=== PATIENT | male | born 1965 | race American Indian/Alaskan Native ===

== ENCOUNTER 2018-06-04 23:09 | Emergency (ER) | payer SELFPAY ==
[2018-06-05 00:12] VITALS: BP 96/67
--- NOTE | 2018-06-05 02:25 | XRay Report ---
FINAL REPORT EXAM: XR HAND 3+V LT HISTORY: pain and injury to L middle finger TECHNIQUE: AP view of the left hand and a lateral view of the left middle finger PRIORS: None. FINDINGS: There is a 3 mm density located on the radial side of the 3rd distal interphalangeal joint that appears to represent a foreign body. It is seen only on the AP view. There is an old, healed fifth metacarpal fracture. The bones are normally aligned and mineralized. The joint spaces are well-preserved. There is no evidence of acute fracture. IMPRESSION: 3 mm density on the radial side of the 3rd distal interphalangeal joint suspicious for a foreign body. No evidence of acute fracture.
[2018-06-05] MEDS ORDERED: NORCO 5/325 PO ONE (02:45)
--- NOTE | 2018-06-05 02:50 | Emergency Department Report ---
HPI - General Chief Complaint: Extremity Injury, Upper Time Seen by Provider: 06/05/18 02:24 - HPI HPI: Room 23 The patient is a 53-year-old male presenting with a chief complaint left middle finger pain. The patient states yesterday morning he accidentally slammed his left middle finger in a car door. Patient complains of pain DIP. Patient gives his pain score 9-10/10. Patient denies any other complaints. Location: Left middle finger Duration: Constant since yesterday Quality: Pain Severity: 9-10/10 Modifying factors: [see above] Context: [see above] Mode of transportation: [not driving] ED Past Medical Hx - Past Medical History Previous Medical History?: Yes Hx Asthma: (BRONCHITIS) Additional medical history: "I have a hernia that I've never seen the doctor about" - Surgical History Past Surgical History?: No - Family History Family history: no significant - Social History Smoking Status: Current Every Day Smoker (1/3 pack per day) Substance Use Type: None - Medications Home Medications: Home Medications Medication Instructions Recorded Confirmed Last Taken Type Albuterol Sulfate [Ventolin HFA] 2 puff IH Q4H PRN #1 hfa.aer.ad 03/02/14 Unknown Rx Prednisone [Prednisone 10 mg 10 mg PO .TAPER #1 tab.ds.pk 03/02/14 Unknown Rx (6-Day Pack, 21 Tabs)] Acetaminophen/Codeine [Tylenol #3] 1 tab PO Q6H PRN #15 tab 06/24/15 Unknown Rx HYDROcodone/APAP 5-325 [[place] 1 - 2 each PO Q6HR PRN #14 tablet 06/05/18 Unknown Rx 5/325] Ibuprofen [Motrin 800 MG tab] 800 mg PO Q8HR PRN #20 tablet 06/05/18 Unknown Rx ED Review of Systems ROS: Stated complaint: LT MIDDLE FINGER,POSS BROKEN Other details as noted in HPI Constitutional: no symptoms reported Eyes: denies: eye pain ENT: denies: throat pain Respiratory: no symptoms reported Cardiovascular: denies: chest pain Endocrine: no symptoms reported Gastrointestinal: denies: abdominal pain Genitourinary: denies: dysuria Musculoskeletal: arthralgia Neurological: denies: headache Physical Exam - Physical Exam Vital Signs: Vital Signs 06/05/18 06/05/18 00:00 00:40 Temperature 98.8 F 98.8 F Pulse Rate 71 71 Respiratory 16 16 Rate Blood Pressure 96/67 96/67 O2 Sat by Pulse 95 95 Oximetry Physical Exam: GENERAL: The patient is well-developed well-nourished male sitting on stretcher not appearing to be in acute distress. [] HEENT: Normocephalic. Atraumatic. Extraocular motions are intact. Patient has moist mucous membranes. NECK: Supple. Trachea midline CHEST/LUNGS: There is no respiratory distress noted. HEART/CARDIOVASCULAR: Regular. There is no tachycardia. Normal capillary refill left middle finger. 2+ left radial pulse SKIN: There is no rash. There is no laceration or abrasion of the left middle finger NEURO: The patient is awake, alert, and oriented. The patient is cooperative. The patient has normal speech MUSCULOSKELETAL: There is no limitation range of motion. ED Course Vital Signs 06/05/18 06/05/18 00:00 00:40 Temperature 98.8 F 98.8 F Pulse Rate 71 71 Respiratory 16 16 Rate Blood Pressure 96/67 96/67 O2 Sat by Pulse 95 95 Oximetry ED Medical Decision Making - Radiology Data Radiology results: report reviewed (left hand x-ray), image reviewed (left hand x-ray) interpreted by me: Left hand [id number] to the ulnar side of the middle finger DIP possible bony avulsion [facility] [address] [place] [address] XRay Report Signed Patient: DEBORAH CATHERINE JR MR#: [id number] : 1965 Acct:[id number] Age/Sex: 53 / M ADM Date: 06/04/18 Loc: ED Attending Dr: Ordering Physician: MARY LOU NARAYAN MD Date of Service: 06/05/18 Procedure(s): XR hand 3+V LT Accession Number(s): [id number] cc: MARY LOU NARAYAN MD Fluoro Time In Minutes: FINAL REPORT EXAM: XR HAND 3+V LT HISTORY: pain and injury to L middle finger TECHNIQUE: AP view of the left hand and a lateral view of the left middle finger PRIORS: None. FINDINGS: There is a 3 mm density located on the radial side of the 3rd distal interphalangeal joint that appears to represent a foreign body. It is seen only on the AP view. There is an old, healed fifth metacarpal fracture. The bones are normally aligned and mineralized. The joint spaces are well-preserved. There is no evidence of acute fracture. IMPRESSION: 3 mm density on the radial side of the 3rd distal interphalangeal joint suspicious for a foreign body. No evidence of acute fracture. Transcribed By: DANGELO Dictated By: PATTI AVENDAÑO MD Electronically Authenticated By: PATTI AVENDAÑO MD Signed Date/Time: 06/05/18223 DD/ 3 TD/TT: 06/05/18223 - Differential Diagnosis finger fracture Critical care attestation.: If time is entered above; I have spent that time in minutes in the direct care of this critically ill patient, excluding procedure time. ED Disposition Clinical Impression: Finger fracture, left Disposition: - TO HOME OR SELFCARE Is pt being admited?: No Does the pt Need Aspirin: No Condition: Stable Instructions: Finger Fracture (ED) Additional Instructions: Return to the emergency department immediately should you develop worsening symptoms, fever, inability to tolerate food or liquid or any other concerns. Prescriptions: HYDROcodone/APAP 5-325 [[place] 5/325] 1 - 2 each PO Q6HR PRN #14 tablet PRN Reason: Pain Ibuprofen [Motrin 800 MG tab] 800 mg PO Q8HR PRN #20 tablet PRN Reason: Pain, Moderate (4-6) Referrals: PRIMARY CARE, [Primary Care Provider] - 3-5 Days DEBORAH AUSTIN MD [Staff Physician] - 3-5 Days (Dr. Austin is an orthopedic surgeon. Please follow up with him for further evaluation) Time of Disposition: 02:51
== END 2018-06-05 03:20 | disposition home or self-care (01) ==
LOC: ED 23:09
DX: S62.633A Displaced fracture of distal phalanx of left middle finger, initial encounter for closed fracture (principal); F17.200 Nicotine dependence, unspecified, uncomplicated; W22.8XXA Striking against or struck by other objects, initial encounter; Y93.89 Activity, other specified; Y92.89 Other specified places as the place of occurrence of the external cause; Y99.8 Other external cause status

== ENCOUNTER 2018-08-31 15:56 | Emergency (ER) | payer SELFPAY ==
[2018-08-31] MEDS ORDERED: ASPIRIN PO ONE (16:11)
[2018-08-31 16:34] LABS: Basophils % (Auto) 0.8 % (0.0-1.8); Eosinophils # (Auto) 0.2 K/mm3 (0.0-0.4); Eosinophils % (Auto) 3.4 % (0.0-4.3); Hematocrit 40.3 % (35.5-45.6); Hemoglobin 13.3 gm/dl (11.8-15.2); Lymphocytes # (Auto) 1.6 K/mm3 (1.2-5.4); Lymphocytes % (Auto) 28.9 % (13.4-35.0); Mean Corpuscular HGB Conc 33 % (32-34); Mean Corpuscular Volume 93 fl (84-94); Monocytes # (Auto) 0.5 K/mm3 (0.0-0.8); Monocytes % (Auto) 9.5 % (0.0-7.3); Platelet Count 279 K/mm3 (140-440); Red Blood Count 4.33 M/mm3 (3.65-5.03); Red Cell Distribution Width 13.7 % (13.2-15.2)
[2018-08-31 16:58] LABS: BUN/Creatinine Ratio 9; Blood Urea Nitrogen 9 mg/dL (9-20); Calcium 8.5 mg/dL (8.4-10.2); Hemolysis Index 3
--- NOTE | 2018-08-31 19:38 | XRay Report ---
FINAL REPORT PROCEDURE: Chest. TECHNIQUE: PA and lateral views. HISTORY: Chest pain. COMPARISON: No prior studies are available for comparison. FINDINGS: The heart size is normal. There is moderate tortuosity of the thoracic aorta. The lungs are clear and well expanded. There are no pleural effusions. The soft tissues and regional skeleton are unremarkab le. IMPRESSION: No evidence of acute cardiopulmonary disease.
[2018-08-31] MEDS ORDERED: TORADOL IM ONE (20:29)
[2018-08-31] MEDS ORDERED: TORADOL ONE (20:33)
--- NOTE | 2018-08-31 21:50 | Emergency Department Report ---
ED General Adult HPI - General Chief complaint: Chest Pain Stated complaint: CHEST PAIN Time Seen by Provider: 08/31/18 20:23 Source: patient Mode of arrival: Ambulatory Limitations: No Limitations - History of Present Illness Severity scale (0 -10): 8 - Related Data Previous Rx's Medication Instructions Recorded Last Taken Type Albuterol Sulfate [Ventolin HFA] 2 puff IH Q4H PRN #1 hfa.aer.ad 03/02/14 Un known Rx Prednisone [Prednisone 10 mg 10 mg PO .TAPER #1 tab.ds.pk 03/02/14 Unknown Rx (6-Day Pack, 21 Tabs)] Acetaminophen/Codeine [Tylenol #3] 1 tab PO Q6H PRN #15 tab 06/24/15 Unknown Rx HYDROcodone/APAP 5-325 [[place] 1 - 2 each PO Q6HR PRN #14 tablet 06/05/18 Unknown Rx 5/325] Ibuprofen [Motrin 800 MG tab] 800 mg PO Q8HR PRN #20 tablet 06/05/18 Unknown Rx ALBUTEROL Inhaler (OR & NICU) 1 puff IH Q4-6H PRN #1 inha 08/31/18 Unknown Rx [ProAir HFA Inhaler] guaiFENesin/CODEINE [Robitussin AC] 5 ml PO Q6H PRN #120 ml 08/31/18 Unknown Rx predniSONE [Deltasone] 20 mg PO QDAY #5 tab 08/31/18 Unknown Rx Allergies Allergy/AdvReac Type Severity Reaction Status Date / Time No Known Allergies Allergy Verified 01/29/14 06:41 ED Review of Systems ROS: Stated complaint: CHEST PAIN Other details as noted in HPI Constitutional: denies: chills, fever Eyes: denies: eye pain, eye discharge, vision change ENT: denies: ear pain, throat pain Respiratory: denies: cough, shortness of breath, wheezing Cardiovascular: denies: chest pain, palpitations Endocrine: no symptoms reported Gastrointestinal: denies: abdominal pain, nausea, diarrhea Genitourinary: denies: urgency, dysuria Musculoskeletal: denies: back pain, joint swelling, arthralgia Skin: denies: rash, lesions Neurological: denies: headache, weakness, paresthesias Psychiatric: denies: anxiety, depression Hematological/Lymphatic: denies: easy bleeding, easy bruising ED Past Medical Hx - Past Medical History Previous Medical History?: Yes Hx Asthma: (BRONCHITIS) Additional medical history: "I have a hernia that I've never seen the doctor about" - Surgical History Past Surgical History?: No - Social History Smoking Status: Current Every Day Smoker Substance Use Type: Marijuana - Medications Home Medications: Home Medications Medication Instructions Recorded Confirmed Last Taken Type Albuterol Sulfate [Ventolin HFA] 2 puff IH Q4H PRN #1 hfa.aer.ad 03/02/14 Unknown Rx Prednisone [Prednisone 10 mg 10 mg PO .TAPER #1 tab.ds.pk 03/02/14 Unknown Rx (6-Day Pack, 21 Tabs)] Acetaminophen/Codeine [Tylenol #3] 1 tab PO Q6H PRN #15 tab 06/24/15 Unknown Rx HYDROcodone/APAP 5-325 [[place] 1 - 2 each PO Q6HR PRN #14 tablet 06/05/18 Unknown Rx 5/325] Ibuprofen [Motrin 800 MG tab] 800 mg PO Q8HR PRN #20 tablet 06/05/18 Unknown Rx ALBUTEROL Inhaler (OR & NICU) 1 puff IH Q4-6H PRN #1 inha 08/31/18 Unknown Rx [ProAir HFA Inhaler] guaiFENesin/CODEINE [Robitussin AC] 5 ml PO Q6H PRN #120 ml 08/31/18 Unknown Rx predniSONE [Deltasone] 20 mg PO QDAY #5 tab 08/31/18 Unknown Rx ED Physical Exam - General Limitations: No Limitations General appearance: alert, in no apparent distress - Head Head exam: Present: atraumatic, normocephalic - Eye Eye exam: Present: normal appearance - ENT ENT exam: Present: mucous membranes moist - Neck Neck exam: Present: normal inspection, full ROM - Respiratory Respiratory exam: Present: normal lung sounds bilaterally. Absent: respiratory distress - Cardiovascular Cardiovascular Exam: Present: regular rate, normal rhythm. Absent: systolic m urmur, diastolic murmur, rubs, gallop - GI/Abdominal GI/Abdominal exam: Present: soft, normal bowel sounds - Rectal Rectal exam: Present: deferred - Extremities Exam Extremities exam: Present: normal inspection - Back Exam Back exam: Present: normal inspection - Neurological Exam Neurological exam: Present: alert, oriented X3 - Psychiatric Psychiatric exam: Present: normal affect, normal mood - Skin Skin exam: Present: warm, dry, intact, normal color. Absent: rash ED Course Vital Signs 08/31/18 08/31/18 16:08 20:38 Temperature 97.7 F Pulse Rate 66 Respiratory 20 20 Rate Blood Pressure 140/86 O2 Sat by Pulse 98 Oximetry ED Medical Decision Making - Lab Data Result diagrams: 08/31/18 16:12 08/31/18 16:12 Critical care attestation.: If time is entered above; I have spent that time in minutes in the direct care of this critically ill patient, excluding procedure time. ED Disposition Clinical Impression: Cough, Chest pain Is pt being admited?: No Does the pt Need Aspirin: No Condition: Stable Instructions: Chest Pain (ED), Acute Bronchitis (ED) Referrals: PRIMARY CARE [Primary Care Provider] - 3-5 Days [facility] [Provider Group] - 3-5 Days
[2018-08-31 22:04] VITALS: BP 132/88
== END 2018-08-31 22:04 | disposition home or self-care (01) ==
LOC: ED 15:56
DX: R07.89 Other chest pain (principal); R05 Cough; F12.10 Cannabis abuse, uncomplicated; F17.200 Nicotine dependence, unspecified, uncomplicated
CPT/HCPCS: 36415; 71046; 80048; 84484; 85025; 93005; 93010; 96372; 99284; J1885

== ENCOUNTER 2019-02-02 14:00 | Emergency (ER) | payer SELFPAY ==
[2019-02-02 14:27] VITALS: BP 126/82
--- NOTE | 2019-02-02 14:28 | Event Note ---
ED Screening Note Date of service: 02/02/19 Time: 14:25 ED Screening Note: 53 y/o male comes in for right shoulder injury that happen yesterday. This initial assessment/diagnostic orders/clinical plan/treatment(s) is/are subject to change based on patients health status, clinical progression and re- assessment by fellow clinical providers in the ED. Further treatment and workup at subsequent clinical providers discretion. Patient/guardian urged not to elope from the ED as their condition may be serious if not clinically assessed and managed. Initial orders include:
--- NOTE | 2019-02-02 15:14 | XRay Report ---
RIGHT SHOULDER, 3 VIEWS: HISTORY: right shoulder pain. Normal bone mineralization. No acute osseous injury is identified. Mild osteoarthritis is identified at the glenohumeral joint. No suspicious bony lesion. The soft tissues are unremarkable. IMPRESSION: Mild osteoarthritis.
--- NOTE | 2019-02-02 15:24 | Emergency Department Report ---
ED General Adult HPI - General Chief complaint: Shoulder Injury Stated complaint: R SHOULDER PAIN Time Seen by Provider: 02/02/19 14:43 Source: patient Mode of arrival: Ambulatory Limitations: No Limitations - History of Present Illness Initial comments: Patient presents to the emergency department with a chief complaint of right shoulder pain after falling at work onto a concrete floor. Patient denies hitting his head or loss of consciousness. -: Sudden Location: upper extremity Radiation: non-radiation Severity scale (0 -10): 7 Quality: sharp Consistency: constant Improves with: rest Worsens with: movement Associated Symptoms: denies other symptoms Treatments Prior to Arrival: none - Related Data Previous Rx's Medication Instructions Recorded Last Taken Type Albuterol Sulfate [Ventolin HFA] 2 puff IH Q4H PRN #1 hfa.aer.ad 03/02/14 Unknown Rx Prednisone [Prednisone 10 mg 10 mg PO .TAPER #1 tab.ds.pk 03/02/14 Unknown Rx (6-Day Pack, 21 Tabs)] Acetaminophen/Codeine [Tylenol #3] 1 tab PO Q6H PRN #15 tab 06/24/15 Unknown Rx HYDROcodone/APAP 5-325 [[place] 1 - 2 each PO Q6HR PRN #14 tablet 06/05/18 Unknown Rx 5/325] Ibuprofen [Motrin 800 MG tab] 800 mg PO Q8HR PRN #20 tablet 06/05/18 Unknown Rx ALBUTEROL Inhaler (OR & NICU) 1 puff IH Q4-6H PRN #1 inha 08/31/18 Unknown Rx [ProAir HFA Inhaler] guaiFENesin/CODEINE [Robitussin AC] 5 ml PO Q6H PRN #120 ml 08/31/18 Unknown Rx predniSONE [Deltasone] 20 mg PO QDAY #5 tab 08/31/18 Unknown Rx Ibuprofen [Motrin] 800 mg PO Q8HR PRN #30 tablet 02/02/19 Unknown Rx predniSONE [Deltasone] 20 mg PO DAILY #15 tablet 02/02/19 Unknown Rx traMADol [Ultram] 50 mg PO Q6HR PRN #15 tablet 02/02/19 Unknown Rx Allergies Allergy/AdvReac Type Severity Reaction Status Date / Time No Known Allergies Allergy Verified 01/29/14 06:41 ED Review of Systems ROS: Stated complaint: R SHOULDER PAIN Other details as noted in HPI Comment: All other systems reviewed and negative Constitutional: denies: chills, fever Eyes: denies: eye pain, eye discharge, vision change ENT: denies: ear pain, throat pain Respiratory: denies: cough, shortness of breath, wheezing Cardiovascular: denies: chest pain, palpitations Endocrine: no symptoms reported Gastrointestinal: denies: abdominal pain, nausea, diarrhea Genitourinary: denies: urgency, dysuria Musculoskeletal: other (shoulder pain). denies: back pain, joint swelling, arthralgia Skin: denies: rash, lesions Neurological: denies: headache, weakness, paresthesias Psychiatric: denies: anxiety, depression Hematological/Lymphatic: denies: easy bleeding, easy bruising ED Past Medical Hx - Past Medical History Previous Medical History?: Yes Hx Asthma: (BRONCHITIS) Additional medical history: "I have a hernia that I've never seen the doctor about" - Surgical History Past Surgical History?: No - Social History Smoking Status: Never Smoker Substance Use Type: Marijuana - Medications Home Medications: Home Medications Medication Instructions Recorded Confirmed Last Taken Type Albuterol Sulfate [Ventolin HFA] 2 puff IH Q4H PRN #1 hfa.aer.ad 03/02/14 Unknown Rx Prednisone [Prednisone 10 mg 10 mg PO .TAPER #1 tab.ds.pk 03/02/14 Unknown Rx (6-Day Pack, 21 Tabs)] Acetaminophen/Codeine [Tylenol #3] 1 tab PO Q6H PRN #15 tab 06/24/15 Unknown Rx HYDROcodone/APAP 5-325 [[place] 1 - 2 each PO Q6HR PRN #14 tablet 06/05/18 U nknown Rx 5/325] Ibuprofen [Motrin 800 MG tab] 800 mg PO Q8HR PRN #20 tablet 06/05/18 Unknown Rx ALBUTEROL Inhaler (OR & NICU) 1 puff IH Q4-6H PRN #1 inha 08/31/18 Unknown Rx [ProAir HFA Inhaler] guaiFENesin/CODEINE [Robitussin AC] 5 ml PO Q6H PRN #120 ml 08/31/18 Unknown Rx predniSONE [Deltasone] 20 mg PO QDAY #5 tab 08/31/18 Unknown Rx Ibuprofen [Motrin] 800 mg PO Q8HR PRN #30 tablet 02/02/19 Unknown Rx predniSONE [Deltasone] 20 mg PO DAILY #15 tablet 02/02/19 Unknown Rx traMADol [Ultram] 50 mg PO Q6HR PRN #15 tablet 02/02/19 Unknown Rx ED Physical Exam - General Limitations: No Limitations General appearance: alert, in no apparent distress - Head Head exam: Present: atraumatic, normocephalic - Eye Eye exam: Present: normal appearance, PERRL, EOMI - ENT ENT exam: Present: mucous membranes moist - Neck Neck exam: Present: normal inspection - Cardiovascular Cardiovascular Exam: Present: rubs - Rectal Rectal exam: Present: deferred - Extremities Exam Extremities exam: Present: other (patient has limited range of motion of right shoulder secondary to pain; is tenderness to palpation to the proximal aspect of the humerus) - Back Exam Back exam: Present: normal inspection - Neurological Exam Neurological exam: Present: alert, oriented X3 - Psychiatric Psychiatric exam: Present: normal affect, normal mood - Skin Skin exam: Present: warm, dry, intact, normal color. Absent: rash ED Course Vital Signs 02/02/19 14:25 Temperature 97.8 F Pulse Rate 76 Respiratory 16 Rate Blood Pressure 126/82 [Left] O2 Sat by Pulse 98 Oximetry ED Medical Decision Making - Radiology Data Radiology results: report reviewed - Medical Decision Making Plan of care and results discussed with the patient Critical care attestation.: If time is entered above; I have spent that time in minutes in the direct care of this critically ill patient, excluding procedure time. ED Disposition Clinical Impression: Shoulder pain, Shoulder injury Disposition: - TO HOME OR SELFCARE Is pt being admited?: No Does the pt Need Aspirin: No Condition: Stable Instructions: Shoulder Sprain (ED) Additional Instructions: return if worse Referrals: JOSE FRANCISCO JI MD [Primary Care Provider] - 3-5 Days [facility] [Provider Group] - 3-5 Days [facility] [Provider Group] - 3-5 Days Time of Disposition: 15:24
== END 2019-02-02 15:47 | disposition home or self-care (01) ==
LOC: ED 14:00
DX: S49.91XA Unspecified injury of right shoulder and upper arm, initial encounter (principal); F12.90 Cannabis use, unspecified, uncomplicated; W18.30XA Fall on same level, unspecified, initial encounter; Y93.89 Activity, other specified; Y92.89 Other specified places as the place of occurrence of the external cause; Y99.8 Other external cause status
CPT/HCPCS: 99283

== ENCOUNTER 2019-06-06 18:39 | Emergency (ER) | payer SELFPAY ==
--- NOTE | 2019-06-06 18:59 | Event Note ---
ED Screening Note Date of service: 06/06/19 Time: 18:54 ED Screening Note: This is a 54 y.o. M. that presents to the ER with mandible pain after falling 30-40 minutes [employer]. Patient states he was at a sports bar when he passed out. Patient partner states he passed out after walking to the restroom. He loc for a few seconds and started vomiting with arousal. This initial assessment/diagnostic orders/clinical plan/treatment(s) is/are subject to change based on patients health status, clinical progression and re- assessment by fellow clinical providers in the ED. Further treatment and workup at subsequent clinical providers discretion. Patient/guardian urged not to elope from the ED as their condition may be serious if not clinically assessed and managed. Initial orders include: CT of facial bones & CT of head EKG and accucheck
[2019-06-06] MEDS ORDERED: NACL 0.9% 1000 ML 1,000 ML IV ONE ×2 (19:58→21:48)
--- NOTE | 2019-06-06 20:10 | Cat Scan Report ---
CT head/brain without con INDICATION: left sided mandible pain s/p fall. TECHNIQUE: Routine CT head without contrast. All CT scans at this location are performed using CT dos e reduction for ALARA by means of automated exposure control. COMPARISON: None. FINDINGS: BRAIN / INTRACRANIAL CONTENTS: No acute hemorrhage, mass effect, midline shift, or hydrocephalus. No appreciable acute territorial or lacunar infarct. No chronic infarct or focal atrophy. Normal brain v olume and ventricular/sulcal size for age. ORBITS: No significant abnormality of visualized orbits. SINUSES / MASTOIDS: No significant abnormality of visualized sinuses and mastoid air cells. ADDITIONAL FINDINGS: Calvarium and visualized facial bones are intact. IMPRESSION: 1. No acute intracranial abnormality. Signer Name: Jacek Johnson MD Signed: 06/06/2019 8:05 PM Workstation Name: [id number]
--- NOTE | 2019-06-06 20:19 | Cat Scan Report ---
CT MAXILLOFACIAL WITHOUT CONTRAST INDICATION / CLINICAL INFORMATION: left sided mandible pain s/p fall. TECHNIQUE: All CT scans at this location are performed using CT dose reduction for ALARA by means of automated e xposure control. COMPARISON: Noncontrast brain CT from the same time FINDINGS: FACIAL BONES: Acute right ZMC complex type fracture involving a minimally displaced fracture of the z ygomatic arch, minimally displaced fractures of the inferior orbital rim extending to the inferior/fr ontal wall of the maxillary sinus with likely involvement of the infraorbital canal (series 401, imag e 25). There is also a minimally displaced fracture of the lateral wall of the right maxillary sinus (series 2 image 46). Pterygoid plates, maxilla and mandible are intact. The temporomandibular joints are normally aligned. No temporal bone fracture is seen. PARANASAL SINUSES: No significant abnormality. ORBITS: No orbital hematoma VISUALIZED INTRACRANIAL STRUCTURES: No significant abnormality. ADDITIONAL FINDINGS: Poor dentition. IMPRESSION: 1. Acute, mildly displaced fractures of the right second metacarpal arch, inferior orbital rim, and frontal and lateral richter of the right maxillary sinus with likely involvement of the infraorbital c anal/foramen. Signer Name: Jacek Johnson MD Signed: 06/06/2019 8:15 PM Workstation Name: [id number]
[2019-06-06 20:33] LABS: Basophils # (Auto) 0.1 K/mm3 (0.0-0.1); Basophils % (Auto) 0.6 % (0.0-1.8); Eosinophils % (Auto) 0.2 % (0.0-4.3); Hematocrit 43.6 % (35.5-45.6); Hemoglobin 14.8 gm/dl (11.8-15.2); Lymphocytes # (Auto) 0.7 K/mm3 (1.2-5.4); Lymphocytes % (Auto) 7.1 % (13.4-35.0); Mean Corpuscular HGB Conc 34 % (32-34); Mean Corpuscular Volume 93 fl (84-94); Monocytes # (Auto) 0.7 K/mm3 (0.0-0.8); Monocytes % (Auto) 7.6 % (0.0-7.3); Platelet Count 268 K/mm3 (140-440); Red Blood Count 4.67 M/mm3 (3.65-5.03); Red Cell Distribution Width 13.9 % (13.2-15.2)
[2019-06-06 20:57] LABS: Alanine Aminotransferase 25 units/L (7-56); Albumin 3.1 g/dL (3.9-5); BUN/Creatinine Ratio 12; Blood Urea Nitrogen 13 mg/dL (9-20); Calcium 8.1 mg/dL (8.4-10.2); Hemolysis Index 11
--- NOTE | 2019-06-06 21:04 | Emergency Department Report ---
ED Syncope HPI - General Chief Complaint: Syncope Stated Complaint: FALL INJURY/RT SIDE HEAD PAIN Time Seen by Provider: 06/06/19 18:54 - History of Present Illness Initial Comments: pt is a 54 yo male who presents to the ED with c/o a syncopal episode that occurred just [employer]. the patient states that he was feeling nauseous stood up quickly to go to the bathroom and then began to feel lightheaded, overheated, and more nauseous and then he states he lost consciousness and woke up on the floor. he reports he did drink one beer and just ate a meal. he states that when he came to he was c/o right sided facial pain. he denies any CP, sensation of room spinning, SOB, vision changes, numbness, unilateral weakness, vomiting, diarrhea, recent illness. he states he still has right sided facial pain and mild SOTOMAYOR. he states his only PMHx is bronchitis. he denies any allergies to meds. he is a smoker, occ drinker, and endorses marijuana use. - Related Data Allergies/Adverse Reactions: Allergies No Known Allergies Allergy (Verified 06/06/19 18:41) Home Medications: Ambulatory Orders Albuterol Sulfate [Ventolin HFA] 2 puff IH Q4H PRN #1 hfa.aer.ad 03/02/14 Prednisone [Prednisone 10 mg (6-Day Pack, 21 Tabs)] 10 mg PO .TAPER #1 tab.ds.pk 03/02/14 Acetaminophen/Codeine [Tylenol #3] 1 tab PO Q6H PRN #15 tab 06/24/15 HYDROcodone/APAP 5-325 [[place] 5/325] 1 - 2 each PO Q6HR PRN #14 tablet 06/05/18 Ibuprofen [Motrin 800 MG tab] 800 mg PO Q8HR PRN #20 tablet 06/05/18 ALBUTEROL Inhaler (OR & NICU) [ProAir HFA Inhaler] 1 puff IH Q4-6H PRN #1 inha 08/31/18 guaiFENesin/CODEINE [Robitussin AC] 5 ml PO Q6H PRN #120 ml 08/31/18 predniSONE [Deltasone] 20 mg PO QDAY #5 tab 08/31/18 Ibuprofen [Motrin] 800 mg PO Q8HR PRN #30 tablet 02/02/19 predniSONE [Deltasone] 20 mg PO DAILY #15 tablet 02/02/19 traMADol [Ultram] 50 mg PO Q6HR PRN #15 tablet 02/02/19 Ibuprofen [Motrin 600 MG tab] 600 mg PO Q8H PRN #14 tablet 06/07/19 traMADol [Ultram 50 MG tab] 50 mg PO Q6HR PRN #7 tablet 06/07/19 ED Review of Systems ROS: Stated complaint: FALL INJURY/RT SIDE HEAD PAIN Other details as noted in HPI Comment: All other systems reviewed and negative ED Past Medical Hx - Past Medical History Hx Asthma: (BRONCHITIS) Additional medical history: "I have a hernia that I've never seen the doctor about" - Social History Smoking Status: Current Every Day Smoker Substance Use Type: Alcohol, Marijuana - Medications Home Medications: Home Medications Medication Instructions Recorded Confirmed Last Taken Type Albuterol Sulfate [Ventolin HFA] 2 puff IH Q4H PRN #1 hfa.aer.ad 03/02/14 Unknown Rx Prednisone [Prednisone 10 mg 10 mg PO .TAPER #1 tab.ds.pk 03/02/14 Unknown Rx (6-Day Pack, 21 Tabs)] Acetaminophen/Codeine [Tylenol #3] 1 tab PO Q6H PRN #15 tab 06/24/15 Unknown Rx HYDROcodone/APAP 5-325 [[place] 1 - 2 each PO Q6HR PRN #14 tablet 06/05/18 Unknown Rx 5/325] Ibuprofen [Motrin 800 MG tab] 800 mg PO Q8HR PRN #20 tablet 06/05/18 Unknown Rx ALBUTEROL Inhaler (OR & NICU) 1 puff IH Q4-6H PRN #1 inha 08/31/18 Unknown Rx [ProAir HFA Inhaler] guaiFENesin/CODEINE [Robitussin AC] 5 ml PO Q6H PRN #120 ml 08/31/18 Unknown Rx predniSONE [Deltasone] 20 mg PO QDAY #5 tab 08/31/18 Unknown Rx Ibuprofen [Motrin] 800 mg PO Q8HR PRN #30 tablet 02/02/19 Unknown Rx predniSONE [Deltasone] 20 mg PO DAILY #15 tablet 02/02/19 Unknown Rx traMADol [Ultram] 50 mg PO Q6HR PRN #15 tablet 02/02/19 Unknown Rx Ibuprofen [Motrin 600 MG tab] 600 mg PO Q8H PRN #14 tablet 06/07/19 Unknown Rx traMADol [Ultram 50 MG tab] 50 mg PO Q6HR PRN #7 tablet 06/07/19 Unknown Rx ED Physical Exam - General Limitations: No Limitations General appearance: alert, in no apparent distress - Head Head exam: Present: normocephalic, other (TTP over the right zygomatic arch and maxilla, TTP over the right inferior orbital bone, no edema, no obvious deformity, mild TTP over the right mandible, FROM of the TMJ without difficulty) - Eye Eye exam: Present: normal appearance, PERRL, EOMI, other (no signs of entrapment) - ENT ENT exam: Present: mucous membranes moist - Neck Neck exam: Present: normal inspection, full ROM. Absent: tenderness - Respiratory Respiratory exam: Present: normal lung sounds bilaterally. Absent: respiratory distress, wheezes, rales, rhonchi, stridor, chest wall tenderness, accessory muscle use, decreased breath sounds, prolonged expiratory - Cardiovascular Cardiovascular Exam: Present: regular rate, normal rhythm, normal heart sounds. Absent: systolic murmur, diastolic murmur, rubs, gallop - Back Exam Back exam: Present: normal inspection, full ROM. Absent: paraspinal tenderness, vertebral tenderness - Neurological Exam Neurological exam: Present: alert, oriented X3, CN II-XII intact, normal gait, other (normal finger to nose, normal heel to garcia, 5/5 strength in the BUE/BLE, sensation intact throughout, no focal neuro deficits). Absent: motor sensory deficit - Psychiatric Psychiatric exam: Present: normal affect, normal mood - Skin Skin exam: Present: warm, dry, intact ED Course Vital Signs 06/06/19 06/06/19 06/06/19 18:54 20:59 21:01 Temperature 98.6 F Pulse Rate 100 H Respiratory 18 12 Rate Blood Pressure 95/56 105/63 O2 Sat by Pulse 96 76 L 95 Oximetry 06/06/19 06/06/19 06/06/19 21:15 21:30 21:45 Temperature Pulse Rate 76 85 84 Respiratory 21 18 13 Rate Blood Pressure 101/62 98/64 91/60 O2 Sat by Pulse 95 97 96 Oximetry 06/06/19 06/06/19 06/06/19 22:00 22:15 22:31 Temperature Pulse Rate 77 74 89 Respiratory 17 15 15 Rate Blood Pressure 92/62 105/68 105/68 O2 Sat by Pulse 95 97 Oximetry 06/06/19 06/06/19 06/06/19 22:45 23:00 23:15 Temperature Pulse Rate 91 H 78 73 Respiratory 21 25 H 26 H Rate Blood Pressure 105/68 102/65 105/65 O2 Sat by Pulse 96 95 96 Oximetry 06/06/19 06/06/19 06/07/19 23:31 23:45 00:22 Temperature 98.6 F Pulse Rate 89 84 84 Respiratory 16 23 23 Rate Blood Pressure 121/48 108/71 O2 Sat by Pulse 97 97 Oximetry ED Medical Decision Making - Lab Data Result diagrams: 06/06/19 20:23 06/06/19 20:23 - EKG Data EKG shows normal: sinus rhythm, axis, intervals, QRS complexes, ST-T waves Rate: normal - Radiology Data Radiology results: report reviewed CT head/brain without con INDICATION: left sided mandible pain s/p fall. TECHNIQUE: Routine CT head without contrast. All CT scans at this location are performed using CT dose reduction for ALARA by means of automated exposure control. COMPARISON: None. FINDINGS: BRAIN / INTRACRANIAL CONTENTS: No acute hemorrhage, mass effect, midline shift, or hydrocephalus. No appreciable acute territorial or lacunar infarct. No chronic infarct or focal atrophy. Normal brain volume and ventricular/sulcal size for age. ORBITS: No significant abnormality of visualized orbits. SINUSES / MASTOIDS: No significant abnormality of visualized sinuses and mastoid air cells. ADDITIONAL FINDINGS: Calvarium and visualized facial bones are intact. IMPRESSION: 1. No acute intracranial abnormality. Signer Name: Jacek Johnson MD Signed: 06/06/2019 8:05 PM Workstation Name: [id number] Transcribed By: DAMARIS Dictated By: Jacek Johnson MD Electronically Authenticated By: Jacek Johnson MD Signed Date/Time: 06/06/192004 CT MAXILLOFACIAL WITHOUT CONTRAST INDICATION / CLINICAL INFORMATION: left sided mandible pain s/p fall. TECHNIQUE: All CT scans at this location are performed using CT dose reduction for ALARA by means of automated exposure control. COMPARISON: Noncontrast brain CT from the same time FINDINGS: FACIAL BONES: Acute right ZMC complex type fracture involving a minimally displaced fracture of the zygomatic arch, minimally displaced fractures of the inferior orbital rim extending to the inferior/frontal wall of the maxillary sinus with likely involvement of the infraorbital canal (series 401, image 25). There is also a minimally displaced fracture of the lateral wall of the right maxillary sinus (series 2 image 46). Pterygoid plates, maxilla and mandible are intact. The temporomandibular joints are normally aligned. No temporal bone fracture is seen. PARANASAL SINUSES: No significant abnormality. ORBITS: No orbital hematoma VISUALIZED INTRACRANIAL STRUCTURES: No significant abnormality. ADDITIONAL FINDINGS: Poor dentition. IMPRESSION: 1. Acute, mildly displaced fractures of the right second metacarpal arch, inferior orbital rim, and frontal and lateral richter of the right maxillary sinus with likely involvement of the infraorbital canal/foramen. Signer Name: Jacek Johnson MD Signed: 06/06/2019 8:15 PM Workstation Name: [id number] Transcribed By: DAMARIS Dictated By: Jacek Johnson MD Electronically Authenticated By: Jacek Johnson MD Signed Date/Time: 06/06/192014 - Medical Decision Making pt is a 54 yo male who presents to the ED with c/o a syncopal episode that occurred just [employer]. the patient states that he was feeling nauseous stood up quickly to go to the bathroom and then began to feel lightheaded, overheated, and more nauseous and then he states he lost consciousness and woke up on the floor. he reports he did drink one beer and just ate a meal. he states that when he came to he was c/o right sided facial pain. he denies any CP, sensation of room spinning, SOB, vision changes, numbness, unilateral weakness, vomiting, diarrhea, recent illness. he states he still has right sided facial pain and mild SOTOMAYOR. he states his only PMHx is bronchitis. he denies any allergies to meds. he is a smoker, occ drinker, and endorses marijuana use. initial vitals with mild hypotension, HR is stable, improved after fluid administration. labs are stable. blood alcohol is negative. CT facial bones: 1. Acute, mildly displaced fractures of the right second metacarpal arch, inferior orbital rim, and frontal and lateral richter of the right maxillary sinus with likely involvement of the infraorbital canal/foramen. CT head: 1. No acute intracranial abnormality. EKG is normal. Patient was walked around the emergency department and had no further episodes of lightheadedness or nausea. Discussed all results with the patient and discussed the importance of following up with an ENT doctor due to his facial fractures. Patient given prescription for pain medication. advised pt to please take medication as prescribed as needed. do not drive or operate heavy machinery while taking pain medication. follow up with an ear, nose, throat doctor in the next 2 days. return to the emergency room for any new or worsening symptoms. - Differential Diagnosis arrhythmia, ICH, SDH, mass, electrolyte abnormality, ortho hypotension, fx Critical care attestation.: If time is entered above; I have spent that time in minutes in the direct care of this critically ill patient, excluding procedure time. ED Disposition Clinical Impression: Syncope Qualifiers: Syncope type: unspecified Qualified Code(s): R55 - Syncope and collapse Hypotension Qualifiers: Hypotension type: unspecified hypotension type Qualified Code(s): I95.9 - Hypotension, unspecified Fracture of zygomatic arch Qualifiers: Encounter type: initial encounter Fracture type: closed Laterality: right Qualified Code(s): S02.40EA - Zygomatic fracture, right side, initial encounter for closed fracture Fracture of maxillary sinus Qualifiers: Encounter type: initial encounter Fracture type: closed Qualified Code(s): S02.401A - Maxillary fracture, unspecified side, initial encounter for closed fracture Disposition: DC-01 TO HOME OR SELFCARE Is pt being admited?: No Does the pt Need Aspirin: No Condition: Stable Instructions: Facial Fracture (ED), Syncope (ED), Hypotension (ED) Additional Instructions: please take medication as prescribed as needed. do not drive or operate heavy machinery while taking pain medication. follow up with an ear, nose, throat d octor in the next 2 days. return to the emergency room for any new or worsening symptoms. Prescriptions: Ibuprofen [Motrin 600 MG tab] 600 mg PO Q8H PRN #14 tablet PRN Reason: Pain, Moderate (4-6) traMADol [Ultram 50 MG tab] 50 mg PO Q6HR PRN #7 tablet PRN Reason: Pain , Severe (7-10) Referrals: LISA LEIJA MD [Staff Physician] - 2-3 Days SUSHIL CARDOSO MD [Staff Physician] - 2-3 Days Time of Disposition: 00:18 Print Language: QATARI
[2019-06-07 00:22] VITALS: BP 108/71
== END 2019-06-07 00:22 | disposition home or self-care (01) ==
LOC: ED 18:39
DX: S02.402A Zygomatic fracture, unspecified side, initial encounter for closed fracture (principal); S02.401A Maxillary fracture, unspecified side, initial encounter for closed fracture; R55 Syncope and collapse; I95.9 Hypotension, unspecified; F17.200 Nicotine dependence, unspecified, uncomplicated; F12.10 Cannabis abuse, uncomplicated; J45.909 Unspecified asthma, uncomplicated; X58.XXXA Exposure to other specified factors, initial encounter; Y93.89 Activity, other specified; Y92.89 Other specified places as the place of occurrence of the external cause; Y99.8 Other external cause status
CPT/HCPCS: 36415; 70450; 70486; 80053; 83735; 84100; 85025; 93005; 93010; 96360; 96361; 99284; J7030; 80320; G0480